=== PATIENT | female | born 1990 | race Hispanic/Latino ===

== ENCOUNTER 2017-09-26 17:32 | Emergency (ER) | payer SELFPAY ==
[2017-09-26] MEDS ORDERED: HYDROcodone 5MG/APAP 325MG 1 EA TAB PO ONE (17:45)
--- NOTE | 2017-09-26 18:12 | RAD ---
EXAM DESCRIPTION: Chest,2 Views CLINICAL HISTORY:27 years Female, blunt trauma to chest with elbow Comparison: None FINDINGS: No focal lung consolidation. No pleural effusion. No pneumothorax. Cardiac and mediastinal silhouette is unremarkable. No acute osseous abnormality. Soft tissues are unremarkable. IMPRESSION: No acute findings. No focal lung consolidation. Electronically signed by: Kenneth Urban MD 09/26/2017 6:11 PM CDT
--- NOTE | 2017-09-26 18:40 | ED.PDOC ---
History of Present Illness - General Chief Complaint: Trauma Stated Complaint: chest trauma Time Seen by Provider: 09/26/17 17:36 Source: patient Exam Limitations: no limitations - History of Present Illness Initial Comments: the patient is a 27-year-old female presenting to the emergency room secondary to chest pain over the sternum and immediately to the right of the sternum after being elbowed in the chest while running at a soccer match. The patient reports pain with movement and with taking a deep breath. There are no palpitations. No history of any cardiac problems and she is not on any blood thinners. No history of any lung problems. Vital signs are essentially within normal limits with the exception of some mild tachycardia consistent with her current obvious anxiety. Initially she is obviously in an anxiety attack. On physical exam there is no bruising. There is no crepitus. She is tender to palpation over the area. No lacerations. No other areas of any injury are obvious. Timing/Duration: 1 hour Severity: severe Improving Factors: nothing Worsening Factors: movement Associated Symptoms: chest pain Allergies/Adverse Reactions: Allergies NO KNOWN ALLERGY Allergy (Verified 09/26/17 17:47) Home Medications: Ambulatory Orders Tramadol HCl 50 mg PO Q6HR PRN #30 tab 09/26/17 Review of Systems - Review of Systems Constitutional: States: no symptoms reported EENTM: States: no symptoms reported Respiratory: States: no symptoms reported Cardiology: States: chest pain Gastrointestinal/Abdominal: States: no symptoms reported Genitourinary: States: no symptoms reported Musculoskeletal: States: see HPI Skin: States: no symptoms reported Neurological: States: no symptoms reported Endocrine: States: no symptoms reported All other Systems: No Change from Baseline Past Medical History (General) - Patient Medical History Surgical History: other - Vaccination History Hx Influenza Vaccination: No Hx Pneumococcal Vaccination: No - Social History Hx Tobacco Use: No Hx Alcohol Use: Yes - occasional Hx Substance Use: No Hx Substance Use Treatment: No Hx Depression: No - Female History Patient is a Female of Child Bearing Age (10 -59 yrs old): Yes - Triage Comment ED Triage Comment: LMP 2 weeks ago Family Medical History - Family History Mother Family History: Unknown Physical Exam - Physical Exam General Appearance: Alert, Anxious Eye Exam: bilateral normal Ears, Nose, Throat: hearing grossly normal, normal ENT inspection, normal pharynx Neck: full range of motion, supple Respiratory: lungs clear, normal breath sounds, no respiratory distress - the patient has tachypneic but she is very upset, no accessory muscle use, other - anterior chest wall over the sternum and just to the right of the sternum or tender to palpation. No obvious deformity and no crepitus. 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 Chest x-ray shows no widening of the mediastinum and there is no pneumothorax. No obvious rib fracture. The patient has been monitored without any changes for the negative in her vital signs and the patient has remained in a normal sinus rhythm. She is still having some discomfort but it is a little better. The patient will likely have pain over the area of the anterior chest for another week or 2. She does need to take big deep breaths and trying to twist and turn to help prevent any atelectasis in order to prevent any pneumonia development. 2 Aleve twice daily for the next week or 2 may also help. Complications such as pulmonary contusion or posttraumatic pericarditis are highly unlikely given the mechanism of the injury and certainly no clinical signs are present currently to specifically point to those. She should follow up with her primary care doctor in 2-3 days for reevaluation. ER warnings are given for any worsening. she will be written for some tramadol additionally for as needed use. Departure - Departure Clinical Impression: Costochondritis, acute Disposition: Discharge to Home or Self Care Condition: Fair Departure Forms: ED Discharge - Pt. Copy, Patient Portal Self Enrollment Diet: regular diet Activity: increase activity as tolerated Prescriptions: Tramadol HCl 50 mg PO Q6HR PRN #30 tab PRN Reason: Moderate To Severe Pain Home Medications: Ambulatory Orders Tramadol HCl 50 mg PO Q6HR PRN #30 tab 09/26/17 Additional Instructions: the patient is a 27-year-old female presenting to the emergency room after having been elbowed in the chest while running at a soccer match today. Chest x-ray shows no widening of the mediastinum and there is no pneumothorax. No obvious rib fracture. The patient has been monitored without any changes for the negative in her vital signs and the patient has remained in a normal sinus rhythm. She is still having some discomfort but it is a little better. The patient will likely have pain over the area of the anterior chest for another week or 2. She does need to take big deep breaths and trying to twist and turn to help prevent any atelectasis in order to prevent any pneumonia development. 2 Aleve twice daily for the next week or 2 may also help. Complications such as pulmonary contusion or posttraumatic pericarditis are highly unlikely given the mechanism of the injury and certainly no clinical signs are present currently to specifically point to those. She should follow up with her primary care doctor in 2-3 days for reevaluation. ER warnings are given for any worsening. she will be written for some tramadol additionally for as needed use. Print Language: Bulgarian
[2017-09-26] MEDS ORDERED: traMADol HCL 50 MG (ER DISP) # 6 TABS PO ONE (18:59)
[2017-09-26 19:15] VITALS: BP 108/64; TEMP 96; O2SAT 99
== END 2017-09-26 19:17 | disposition home or self-care (01) ==
LOC: ER 17:32
DX: M94.0 Chondrocostal junction syndrome [Tietze] (principal)